=== PATIENT | female | born 1965 | race Caucasian/White ===

== ENCOUNTER 2018-11-01 20:24 | Emergency (ER) | payer OTHER, BC ==
[2018-11-01 20:33] VITALS: BP 154/90; PULSE 79; BMI 37.4
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
== END 2018-11-01 21:07 | disposition home or self-care (01) ==
LOC: FER 20:24
DX: Z04.1 Encounter for examination and observation following transport accident (principal); V43.52XA Car driver injured in collision with other type car in traffic accident, initial encounter; Y93.89 Activity, other specified; Y92.410 Unspecified street and highway as the place of occurrence of the external cause; I10 Essential (primary) hypertension; E13.21 Other specified diabetes mellitus with diabetic nephropathy; Z79.84 Long term (current) use of oral hypoglycemic drugs
CPT/HCPCS: 99281-25